=== PATIENT | female | born 1960 | race American Indian/Alaskan Native ===

== ENCOUNTER 2016-12-05 09:41 | Outpatient (CLI) | payer BC ==
--- NOTE | 2016-12-05 11:35 | Mammography Report ---
Bilateral mammogram: Compared to 07/26/15. CAD study utilized. Findings: Predominance adipose tissue bilaterally. Benign densities bilaterally. Benign calcifications bilaterally. New cluster of calcification noted at inner mid right breast seen on CC view. Impression: Spot compression magnification of new cluster of calcification right breast is recommended. BI-RADS CATEGORY: 0 = Needs additional imaging evaluation ACR BI-RADS MAMMOGRAPHIC CODES: 0 = Needs additional imaging evaluation; 1 = Negative; 2 = Benign; 3 = Probably benign; 4 = Suspicious; 5 = Malignant; 6 = Known biopsy-proven malignancy COMMENT: 1. Dense breast tissue, i.e., adenosis, fibrocystic changes, etc., may obscure an underlying neoplasm. 2. Approximately 10% of cancers are not detected with mammography. 3. A negative mammography report should not delay biopsy if a clinically suspicious mass is present. COMMENT: Patient follow-up letters are generated in [employer].
== END 2016-12-05 09:42 | disposition home or self-care (01) ==
LOC: MAMMO 09:41
PROVIDERS: ATTEND Family Medicine Adult Medicine
DX: Z12.31 Encounter for screening mammogram for malignant neoplasm of breast (principal)
CPT/HCPCS: 77067; G0202

== ENCOUNTER 2016-12-18 13:24 | Outpatient (CLI) | payer BC ==
--- NOTE | 2016-12-18 14:20 | Mammography Report ---
Spot compression magnification of calcification in the right breast: Findings: Predominantly the calcifications aren't in cluster and appear rounded. No definite pleomorphism is noted. Probably benign. Impression: Probably benign calcifications. Six-month followup recommended. BI-RADS CATEGORY: 3 = Probably benign ACR BI-RADS MAMMOGRAPHIC CODES: 0 = Needs additional imaging evaluation; 1 = Negative; 2 = Benign; 3 = Probably benign; 4 = Suspicious; 5 = Malignant; 6 = Known biopsy-proven malignancy COMMENT: 1. Dense breast tissue, i.e., adenosis, fibrocystic changes, etc., may obscure an underlying neoplasm. 2. Approximately 10% of cancers are not detected with mammography. 3. A negative mammography report should not delay biopsy if a clinically suspicious mass is present. COMMENT: Patient follow-up letters are generated in [employer].
== END 2016-12-18 13:25 | disposition home or self-care (01) ==
LOC: MAMMO 13:24
PROVIDERS: ATTEND Family Medicine Adult Medicine
DX: R92.1 Mammographic calcification found on diagnostic imaging of breast (principal); R92.2 Inconclusive mammogram
CPT/HCPCS: G0206-RT

== ENCOUNTER 2020-06-25 10:36 | Outpatient (CLI) | payer BC ==
--- NOTE | 2020-06-25 12:05 | Mammography Report ---
DIGITAL SCREENING MAMMOGRAM WITH CAD, 06/25/2020 INDICATION: Routine screening mammography. SCRN MAMMO TECHNIQUE: Digital bilateral 2D mammography was obtained in the craniocaudal and mediolateral obliq ue projections. This examination was interpreted with the benefit of Computer-Aided Detection analysi s. COMPARISON: 12/27/2012 through 12/05/2016. FINDINGS: Breast Density: The breasts are almost entirely fatty. There is no evidence of dominant mass, suspicious calcifications or architectural distortion in eithe r breast. Benign-appearing nodularity and calcifications bilaterally have not changed. IMPRESSION: No mammographic evidence of malignancy or significant change. Follow up recommendation: Routine yearly BI-RADS Category 2: Benign. A "normal" or negative report should not discourage follow up or biopsy of a clinically significant f inding. A written summary of these findings will be mailed to the patient. The patient will be entered into a mammography reporting system which will generate a reminder letter for the patient's next appointmen t at the appropriate interval. The [employer] recommends yearly mammograms starting at age 40 and continuing as l jorge luis as a woman is in good health. Breast MRI is recommended for women with an approximate 20-25% or greater lifetime risk of breast cancer, including women with a strong family history of breast or ova shayan cancer or who have been treated for Hodgkin's disease. Signer Name: Lencho Chen MD Signed: 06/25/2020 12:01 PM Workstation Name: [id number]
== END 2020-06-25 10:37 | disposition home or self-care (01) ==
LOC: MAMMO 10:36
PROVIDERS: ATTEND Family Medicine Adult Medicine
DX: Z12.31 Encounter for screening mammogram for malignant neoplasm of breast (principal)
CPT/HCPCS: 77067